=== PATIENT | female | born 1975 | race Caucasian/White ===

== ENCOUNTER 2024-05-31 02:45 | Emergency (ER) | payer BC ==
[2024-05-31] MEDS ORDERED: Sodium Chloride 0.9% 10 ML Syringe FLUSH PRN (03:04)
[2024-05-31 03:37] LABS: APPEARANCE,URINE CLEAR (Clear); BILIRUBIN,URINE NEGATIVE (Negative); COLOR,URINE YELLOW (Yellow); GLUCOSE,URINE NEGATIVE (Negative); KETONES,URINE NEGATIVE (Negative); LEUKOCYTE ESTERASE,URINE NEGATIVE (Negative); NITRITE,URINE NEGATIVE (Negative); OCCULT BLOOD,URINE NEGATIVE (Negative); PH,URINE 8.5 (5.0-8.0); PROTEIN,URINE 1+ (Negative); UROBILINOGEN,URINE 0.2 (0.2-1.0)
[2024-05-31] MEDS: Sodium Chloride 0.9% 1,000 ML IV ONE (03:39)
[2024-05-31] MEDS: Ondansetron 4 MG/2 ML SDV IVPUSH ONE (03:40)
[2024-05-31 04:03] LABS: BASOPHILS ABSOLUTE AUTO 0.1 K/mm3 (0.0-0.2); BASOPHILS PERCENT AUTO 0.9 % (0.0-1.0); EOSINOPHILS ABSOLUTE AUTO 0.1 K/mm3 (0.0-0.4); EOSINOPHILS PERCENT AUTO 1.2 % (0.0-6.0); HEMATOCRIT 40.4 % (37.0-47.0); IMMATURE GRAN ABSOLUTE AUTO 0.03 K/mm3 (0.00-0.05); IMMATURE GRAN PERCENT AUTO 0.4 % (0.0-0.4); LYMPHOCYTES ABSOLUTE AUTO 2.2 K/mm3 (1.0-4.8); LYMPHOCYTES PERCENT AUTO 28.5 % (24.0-44.0); MEAN CORPUSCULAR HEMOGLOBIN 25.2 pg (28.0-32.0); MEAN CORPUSCULAR HGB CONC 32.2 g/dl (32.0-36.0); MEAN CORPUSCULAR VOLUME 78.3 fl (83.0-99.0); MEAN PLATELET VOLUME 8.7 fl (9.4-12.3); MONOCYTES ABSOLUTE AUTO 0.4 K/mm3 (0.0-0.8); MONOCYTES PERCENT AUTO 5.5 % (0.0-8.0); NEUTROPHILS ABSOLUTE AUTO 4.8 K/mm3 (1.8-7.7); NEUTROPHILS PERCENT AUTO 63.5 % (41.0-71.0); PLATELET COUNT,PLT 395 K/mm3 (150-400); RED BLOOD CELL COUNT 5.16 M/mm3 (4.10-5.30); WHITE BLOOD CELL COUNT,WBC 7.59 K/mm3 (3.9-11.3)
[2024-05-31 04:15] LABS: CORONAVIRUS COVID-19 NAA NEGATIVE (NEGATIVE); INFLUENZA A NAA NEGATIVE (NEGATIVE); RESPIRATORY SYNCYTIAL VIR NAA NEGATIVE (NEGATIVE)
[2024-05-31 04:25] LABS: ALBUMIN 3.7 g/dl (3.4-5.0); ANION GAP 14.6 (5-15); BILIRUBIN TOTAL 0.6 mg/dL (0.2-1.0); BUN/CREATININE RATIO 11.1 (14-18); C-REACTIVE PROTEIN 0.84 mg/dL (<0.30); CALCIUM 9.3 mg/dL (8.5-10.1); CREATININE 0.9 mg/dL (0.55-1.02); EST CRCL DRUG DOSING (CG) 73.12 mL/min; MAGNESIUM 1.6 mg/dL (1.8-2.4); POTASSIUM,K 3.6 mEq/L (3.5-5.1); PROTEIN TOTAL,TP 7.3 g/dl (6.4-8.2)
[2024-05-31 04:34] LABS: BACTERIA,URINE FEW /hpf (FEW); EPITHELIAL CELLS,URINE 0-5 /hpf (0-5); MUCUS,URINE NOT SEEN /hpf (FEW); RBC,URINE 0-5 /hpf (0-5); WBC,URINE 0-5 /hpf (0-5)
== END 2024-05-31 05:03 | disposition home or self-care (01) ==
LOC: JD.ED 02:45
DX: R11.2 Nausea with vomiting, unspecified (principal); T38.3X5A Adverse effect of insulin and oral hypoglycemic [antidiabetic] drugs, initial encounter; R19.7 Diarrhea, unspecified; Z88.8 Allergy status to other drugs, medicaments and biological substances; E11.9 Type 2 diabetes mellitus without complications
CPT/HCPCS: 0241U; 36415; 80053; 81001; 83735; 84703; 85025; 86140; 96361; 96374; 99284; J2405; J7030; 99283

== ENCOUNTER 2024-11-21 14:03 | Emergency (ER) | payer BC ==
[2024-11-21 14:55] LABS: BASOPHILS PERCENT AUTO 0.2 % (0.0-1.0); EOSINOPHILS ABSOLUTE AUTO 0.1 K/mm3 (0.0-0.4); EOSINOPHILS PERCENT AUTO 0.9 % (0.0-6.0); HEMATOCRIT 45.8 % (37.0-47.0); HEMOGLOBIN 15.4 gm/dl (12.0-16.0); IMMATURE GRAN ABSOLUTE AUTO 0.03 K/mm3 (0.00-0.05); IMMATURE GRAN PERCENT AUTO 0.4 % (0.0-0.4); LYMPHOCYTES ABSOLUTE AUTO 0.7 K/mm3 (1.0-4.8); LYMPHOCYTES PERCENT AUTO 8.4 % (24.0-44.0); MEAN CORPUSCULAR HEMOGLOBIN 28.1 pg (28.0-32.0); MEAN CORPUSCULAR HGB CONC 33.6 g/dl (32.0-36.0); MEAN CORPUSCULAR VOLUME 83.4 fl (83.0-99.0); MEAN PLATELET VOLUME 9.9 fl (9.4-12.3); MONOCYTES ABSOLUTE AUTO 0.4 K/mm3 (0.0-0.8); MONOCYTES PERCENT AUTO 4.6 % (0.0-8.0); NEUTROPHILS ABSOLUTE AUTO 7.3 K/mm3 (1.8-7.7); NEUTROPHILS PERCENT AUTO 85.5 % (41.0-71.0); PLATELET COUNT,PLT 305 K/mm3 (150-400); RED BLOOD CELL COUNT 5.49 M/mm3 (4.10-5.30); WHITE BLOOD CELL COUNT,WBC 8.55 K/mm3 (3.9-11.3)
[2024-11-21] MEDS: Metoclopramide 10 MG/2 ML SDV IVPUSH ONE ×2 (15:00→16:14)
[2024-11-21] MEDS: diphenhydrAMINE 50 MG/ML SDV IVPUSH ONE (15:03)
[2024-11-21] MEDS: Sodium Chloride 0.9% 1,000 ML IV SCH ×2 (15:05→16:30)
[2024-11-21 15:23] LABS: A/G RATIO 1.3 (1-2); ALBUMIN 4.2 g/dl (3.4-5.0); ANION GAP 17.9 (5-15); BILIRUBIN TOTAL 0.9 mg/dL (0.2-1.0); C-REACTIVE PROTEIN 0.48 mg/dL (<0.30); CALCIUM 9.7 mg/dL (8.5-10.1); EST CRCL DRUG DOSING (CG) 65.11 mL/min; POTASSIUM,K 3.9 mEq/L (3.5-5.1); PROTEIN TOTAL,TP 7.5 g/dl (6.4-8.2)
[2024-11-21 15:37] LABS: LACTIC ACID 3.9 mmol/L (0.4-2.0)
[2024-11-21 16:42] LABS: APPEARANCE,URINE CLEAR (Clear); BILIRUBIN,URINE NEGATIVE (Negative); COLOR,URINE YELLOW (Yellow); GLUCOSE,URINE 2+ (Negative); KETONES,URINE 3+ (Negative); LEUKOCYTE ESTERASE,URINE NEGATIVE (Negative); NITRITE,URINE NEGATIVE (Negative); OCCULT BLOOD,URINE NEGATIVE (Negative); PH,URINE 8.5 (5.0-8.0); PROTEIN,URINE 1+ (Negative); UROBILINOGEN,URINE 0.2 (0.2-1.0)
[2024-11-21] MEDS: Iopamidol 612 MG/ML 100 ML Bottle IVPUSH ONE (16:44)
[2024-11-21] MEDS: Iopamidol 612 MG/ML 30 ML SDV IVPUSH ONE (16:44)
[2024-11-21 16:59] LABS: RBC,URINE 0-5 /hpf (0-5); WBC,URINE 0-5 /hpf (0-5)
[2024-11-21 17:00] LABS: BACTERIA,URINE MODERATE /hpf (FEW); MUCUS,URINE FEW /hpf (FEW)
[2024-11-21] MEDS: Promethazine 25 MG Tab PO STA (18:54)
[2024-11-21] MEDS: Ketorolac 30 MG/ML SDV IVPUSH ONE (19:40)
== END 2024-11-21 19:29 | disposition home or self-care (01) ==
LOC: JD.ED 14:03
DX: K75.81 Nonalcoholic steatohepatitis (NASH) (principal); R94.31 Abnormal electrocardiogram [ECG] [EKG]; E78.00 Pure hypercholesterolemia, unspecified; Z88.8 Allergy status to other drugs, medicaments and biological substances; Z79.84 Long term (current) use of oral hypoglycemic drugs; Z79.899 Other long term (current) drug therapy
CPT/HCPCS: 36415; 74177; 80053; 81001; 82947; 83605; 83690; 84484; 85025; 86140; 87428; 93005; 96361; 96374; 96375; 96376; 99284; J1200; J1885; J2765; J7030; Q0169; Q9967; 93010